=== PATIENT | male | born 1955 | race Caucasian/White ===

== ENCOUNTER 2019-02-03 05:54 | Day surgery (SDC) | payer OTHER ==
[2019-02-03] MEDS ORDERED: ceFAZolin 2 GM/DEXTROSE 100 ML IV ONE (06:05)
[2019-02-03] MEDS ORDERED: LR 1,000 ML IV ONE (06:06)
--- NOTE | 2019-02-03 06:11 | PDHPUP ---
History & Physical Update H&P update statement: This history and physical update is based on an assessment of the patient which was completed after admission or registration (within 24 hours), but prior to the surgery/procedure. H&P update: H&P reviewed & patient examined, no change in patient's condition since H&P completed
[2019-02-03] MEDS ORDERED: MIDAZOLAM 2 MG/2 ML VIAL IVP ONE (07:05)
--- NOTE | 2019-02-03 07:09 | PDANEPAE ---
ANE History of Present Illness 63 year old with RIH ANE Past Medical History - Cardiovascular History Hx Hypertension: No Hx Arrhythmias: No Hx Chest Pain: No Hx Coronary Artery / Peripheral Vascular Disease: No Hx CHF / Valvular Disease: No Hx Palpitations: No - Pulmonary History Hx COPD: No Hx Asthma/Reactive Airway Disease: No Hx Recent Upper Respiratory Infection: No Hx Oxygen in Use at Home: No Hx Sleep Apnea: No Sleep Apnea Screening Result - Last Documented: Negative Pulmonary History Comment: allergic rhinitis - Neurologic History Hx Cerebrovascular Accident: No Hx Seizures: No Hx Dementia: No - Endocrine History Hx Diabetes: No - Renal History Hx Renal Disorders: No - Liver History Hx Hepatic Disorders: No - Neurological & Psychiatric Hx Hx Neurological and Psychiatric Disorders: No - Cancer History Hx Cancer: Yes Cancer History Comment: prostate - Congenital Disorder History Hx Congenital Disorders: No Congenital History Comment: brother had pancreatic cancer. colon cancer - GI History Hx Gastrointestinal Disorders: Yes Gastrointestinal History Comment: chronic diarrhea cbo - Other Health History Other Health History: bridge fixed - Chronic Pain History Chronic Pain: No - Surgical History Prior Surgeries: none in last 5 yrs. prostatectomy 2011. colonoscopy 2 weeks ago ANE Review of Systems Review of systems is: negative Review of Systems: - Exercise capacity METS (RN): 6 METS ANE Patient History - Allergies Allergies/Adverse Reactions: amoxicillin [From Augmentin] Allergy (Verified 01/27/19 16:17) Other-Enter Comments cefaclor [From Ceclor] Allergy (Verified 01/27/19 16:17) Other-Enter Comments clavulanic acid [From Augmentin] Allergy (Verified 01/27/19 16:17) Other-Enter Comments Penicillins Allergy (Verified 01/27/19 16:17) Rash SEASONAL Allergy (Uncoded 01/27/19 16:17) ITCHY EYES - Home Medications Home Medications: Fluticasone Nasal [Flonase Nasal Swatara (RX)] 03/23/12 [Last Taken 2 Months Ago ~12/06/18] Loratadine [Claritin] 03/23/12 [Last Taken 1 Week Ago ~01/27/19] Multivitamins [Multivitamin (OTC)] 03/28/12 [Last Taken 01/29/19] Vitamin B Complex [Vitamin B Complex (OTC)] 03/28/12 [Last Taken 01/29/19] - NPO status NPO Since - Liquids (Date): 02/02/19 NPO Since - Liquids (Time): 22:30 NPO Since - Solids (Date): 02/02/19 NPO Since - Solids (Time): 18:30 - Anes Hx Anes Hx: no prior problems - Smoking Hx Smoking Status: Former smoker - Alcohol Use Alcohol Use: None - Family Anes Hx Family Hx Anesthesia Complications: none ANE Labs/Vital Signs - Vital Signs Blood Pressure: 140/80 Heart Rate: 49 Respiratory Rate: 18 O2 Sat (%): 99 Height: 185.42 cm Weight: 75.296 kg ANE Physical Exam - Airway Neck exam: FROM Mallampati Score: Class 1 - Pulmonary Pulmonary: no respiratory distress - Cardiovascular Cardiovascular: regular rate and rhythym - ASA Status ASA Status: II
[2019-02-03] MEDS ORDERED: BUPIVACAINE 0.5% 30 ML SDV ONE (07:13)
[2019-02-03] MEDS ORDERED: fentaNYL 100 MCG/2 ML INJ ONE (07:21)
[2019-02-03] MEDS ORDERED: PROPOFOL 200 MG/20 ML VIAL ONE (07:21)
[2019-02-03] MEDS ORDERED: DEXAMETHASONE 4 MG/ML VIAL ONE (08:27)
[2019-02-03] MEDS ORDERED: SUGAMMADEX SODIUM 200 MG/2 ML VIAL IVP ONE (08:27)
[2019-02-03] MEDS ORDERED: KETOROLAC 30 MG/1 ML SDV ONE (08:27)
[2019-02-03] MEDS ORDERED: ONDANSETRON 4 MG/2 ML VIAL ONE (08:27)
--- NOTE | 2019-02-03 08:34 | POSTOPPROG ---
Post Op Note Date of Operation: 02/03/19 Surgeon: Joyce Brown Anesthesiologist: warm Anesthesia: GET(General Endotracheal) Pre-op Diagnosis: rih Post-op Diagnosis: rih Indication: 63 yo with history of prostatectomy and rih Procedure: davinci rih Findings: indirect rih Inf/Abcess present in the surg proc area at time of surgery?: No Depth: Superfical (Skin SQ) EBL: Minimal Specimen(s): none
[2019-02-03] MEDS ORDERED: fentaNYL 100 MCG/2 ML INJ IVP PRN (08:47)
[2019-02-03] MEDS ORDERED: ONDANSETRON 4 MG/2 ML VIAL IVP PRN (08:47)
[2019-02-03] MEDS ORDERED: PROMETHAZINE HCL 25 MG/ML INJ IVP PRN (08:47)
[2019-02-03] MEDS ORDERED: NALOXONE HCL 0.4 MG/ML INJ IVP PRN (08:47)
--- NOTE | 2019-02-03 08:48 | POSTANESTH ---
Post Anesthetic Evaluation Cardiovascular Status: Normal, Stable Respiratory Status: Normal, Stable Level of Consciousness/Mental Status: Can Participate in Eval Pain Control: Adequate, Prn Tx Ordered Nausea/Vomiting Control: Adequate, Prn Tx Ordered Complications Possibly Related to Anesthesia: None Noted
[2019-02-03] MEDS ORDERED: HYDROCODONE/APAP 5/325 TAB PO PRN (08:50)
[2019-02-03] MEDS ORDERED: oxyCODONE IR 5 MG TAB PO PRN (08:50)
[2019-02-03 09:41] VITALS: BP 117/77
== END 2019-02-03 09:54 | disposition home or self-care (01) ==
LOC: FSGY 05:54
PROVIDERS: ATTEND Surgery
PROC: 0YU54JZ Supplement Right Inguinal Region with Synthetic Substitute, Percutaneous Endoscopic Approach (ICD-10-PCS; principal; 2019-02-03 07:15)
PROC: 8E0WXCZ Robotic Assisted Procedure of Trunk Region (ICD-10-PCS; principal; 2019-02-03 07:15)
DX: K40.90 Unilateral inguinal hernia, without obstruction or gangrene, not specified as recurrent (principal); Z85.46 Personal history of malignant neoplasm of prostate
CPT/HCPCS: C1781; J0690; J1100; J1885; J2250; J2405; J2704; J3010